=== PATIENT | female | born 1960 | race Caucasian/White ===

== ENCOUNTER 2018-07-08 04:18 | Emergency (ER) | payer OTHER ==
[2018-07-08] MEDS ORDERED: IPRATROPIUM BROM 0.5MG/2.5ML ONE (05:00)
[2018-07-08] MEDS ORDERED: ALBUTEROL 2.5 MG/3 ML NEB SOL ONE (05:00)
[2018-07-08 05:31] LABS: Absolute Lymphocytes (CBC) 2.1 K/uL (0.7-4.9); Absolute Monocytes 0.4 K/uL (0.1-1.3); Absolute Neutrophil 3.7 K/uL (1.8-8.0); Basophils % 0.9 % (0-1.3); Eosinophils % 0.8 % (0-4.4); Lymphocytes % 33.8 % (15.3-44.8); MPV 8.3 fL (7.6-11.3); Monocytes % 5.9 % (3.3-12.3); RBC Red Blood Cell Count 4.19 M/uL (3.86-4.86)
--- NOTE | 2018-07-08 07:08 | ER ---
Nurse's Notes [facility] Name: Wendi Proctor Age: 58 yrs Sex: Female : 1960 Arrival Date: 07/08/2018 Time: 04:19 Bed 6 Private MD: Diagnosis: Viral infection. COPD Exacerbation Presentation: 07/08 04:35 Presenting complaint: Patient states: Reports two days ago she started having nausea, ea headache and sore throat. Pt states grandson was diagnosed with the flu two days ago. Transition of care: patient was not received from another setting of care. Onset of symptoms was July 08, 2018. Risk Assessment: Do you want to hurt yourself or someone else? Patient reports no desire to harm self or others. Initial Sepsis Screen: Does the patient meet any 2 criteria? No. Patient's initial sepsis screen is negative. Does the patient have a suspected source of infection? No. Patient's initial sepsis screen is negative. Care prior to arrival: None. 04:35 Method Of Arrival: Ambulatory ea 04:35 Acuity: QUINCY 3 ea Triage Assessment: 04:42 Headache History: The patient has had previous headaches and this one is similar to ea previous episodes. General: Appears in no apparent distress. Behavior is calm, cooperative, appropriate for age. Pain: Complains of pain in body aches. EENT: Parent/caregiver reports the patient having sore throat. Neuro: Level of Consciousness is awake, alert, obeys commands, Oriented to person, place, time, situation. Cardiovascular: Patient's skin is warm and dry. Respiratory: Airway is patent Respiratory effort is even, labored, Respiratory pattern is regular, symmetrical, Breath sounds with wheezes bilaterally. Derm: Skin is pink, warm \T\ dry. 04:42 Pain: Pain currently is 6 out of 10 on a pain scale. Pain began 2-3 days ago. Also ea complains of nausea. Historical: - Allergies: 04:40 No Known Allergies; ea - Home Meds: 04:40 Zoloft Oral [Active]; Pro Air inhaler [Active]; lisinopril Oral [Active]; levothyroxine ea oral [Active]; - PMHx: 04:40 Pneumonia; Hypothyroidism; Hypertension; Asthma; ea - PSHx: 04:40 knee surgeries; Appendectomy; ea - Immunization history:: Adult Immunizations up to date. - Social history:: Smoking status: Patient uses tobacco products, smokes two packs cigarettes per day. - Ebola Screening: : No symptoms or risks identified at this time. Screenin:40 Abuse screen: Denies threats or abuse. Nutritional screening: No deficits noted. ea Tuberculosis screening: No symptoms or risk factors identified. Fall Risk None identified. Assessment: 04:44 Reassessment: see triage assessment. ea 06:06 Reassessment: Patient appears in no apparent distress at this time. No changes from ak1 previously documented assessment. General: Appears in no apparent distress. 07:13 Reassessment: Patient and/or family updated on plan of care and expected duration. Pain sg level reassessed. Patient is alert, oriented x 3, equal unlabored respirations, skin warm/dry/pink. pt reports having a stomach ache at this time, pt reports notifying , no new orders have been received at this time, will continue to monitor. Vital Signs: 04:40 BP 167 / 91; Pulse 86; Resp 19; Temp 97.9; Pulse Ox 95% ; Weight 54.43 kg; Height 5 ft. ea (152.40 cm) (R); Pain 0/10; 06:06 BP 123 / 77; Pulse 84; Resp 19; Pulse Ox 92% on R/A; ak1 04:40 Body Mass Index 23.44 (54.43 kg, 152.40 cm) ea ED Course: 04:19 Patient arrived in ED. ds1 04:26 Dayday Doyle MD is Attending Physician. pkl 04:35 Meghana Willis RN is Primary Nurse. ea 04:38 Triage completed. ea 04:41 Arm band placed on right wrist. Patient placed in an exam room, on a stretcher, on ea pulse oximetry. 04:42 Patient has correct armband on for positive identification. Bed in low position. Call ea light in reach. 05:17 Chest Single View XRAY In Process Unspecified. EDMS 07:29 No provider procedures requiring assistance completed. IV discontinued, intact, sg bleeding controlled, No redness/swelling at site. Pressure dressing applied. Administered Medications: 04:54 Drug: Albuterol - atroVENT (3:1) (2.5 mg - 0.5 mg) 3 ml Route: Nebulizer; ea 06:25 Follow up: Response: No adverse reaction akSara 07:13 Drug: Motrin 600 mg Route: PO; sg 07:30 Follow up: Response: No adverse reaction Outcome: 07:07 Discharge ordered by . ruby 07:28 Discharged to home ambulatory, with family. sg 07:28 Condition: good 07:28 Discharge instructions given to patient, Instructed on discharge instructions, follow up and referral plans. no drinking with medication, medication usage, safety practices, Demonstrated understanding of instructions, follow-up care, medications, Prescriptions given X 1. 07:30 Patient left the ED. sg Signatures: Dispatcher [employer] EDMS Juan Jose Gama RN RN Dayday Bass MD MD pkl Sanford, Demi ds1 Krenek, Amber, RN RN akMeghana Johnson RN RN ea
--- NOTE | 2018-07-08 07:08 | EDPHYS ---
Physician Documentation [facility] Name: Wendi Proctor Age: 58 yrs Sex: Female : 1960 Arrival Date: 07/08/2018 Time: 04:19 Bed 6 Private MD: ED Physician Dayday Doyle HPI: 07/08 04:54 This 58 yrs old Female presents to ER via Ambulatory with complaints of pkl Headache, Sore Throat, Nausea. 04:55 The patient presents with sore throat. The patient describes throat pain as raw. Onset: pkl The symptoms/episode began/occurred 2 day(s) ago. Associated signs and symptoms: Pertinent positives: cough, nausea. Historical: - Allergies: 04:40 No Known Allergies; ea - Home Meds: 04:40 Zoloft Oral [Active]; Pro Air inhaler [Active]; lisinopril Oral [Active]; levothyroxine ea oral [Active]; - PMHx: 04:40 Pneumonia; Hypothyroidism; Hypertension; Asthma; ea - PSHx: 04:40 knee surgeries; Appendectomy; ea - Immunization history:: Adult Immunizations up to date. - Social history:: Smoking status: Patient uses tobacco products, smokes two packs cigarettes per day. - Ebola Screening: : No symptoms or risks identified at this time. ROS: 04:55 Eyes: Negative for injury, pain, redness, and discharge. pkl 04:55 ENT: Positive for sore throat. 04:55 Neck: Negative for stiffness. 04:55 Cardiovascular: Negative for chest pain. 04:55 Respiratory: Positive for cough, with clear sputum, wheezing. 04:55 Abdomen/GI: Positive for nausea, Negative for abdominal pain, vomiting, diarrhea. 04:55 Back: Negative for acute changes. 04:55 : Negative for urinary symptoms. 04:55 MS/extremity: Negative for acute changes. 04:55 Skin: Negative for rash. 04:55 Neuro: Negative for altered mental status. Exam: 04:55 Head/Face: Normocephalic, atraumatic. Eyes: Pupils equal round and reactive to light, pkl extra-ocular motions intact. Lids and lashes normal. Conjunctiva and sclera are non-icteric and not injected. Cornea within normal limits. Periorbital areas with no swelling, redness, or edema. 04:55 ENT: Posterior pharynx: erythema, that is moderate. 04:55 Neck: Exam negative for nuchal rigidity. 04:55 Chest/axilla: Exam negative for acute changes. 04:55 Cardiovascular: Rate: normal, Rhythm: regular. 04:55 Respiratory: the patient does not display signs of respiratory distress, Respirations: normal, Breath sounds: bronchial sounds, that are mild, are scattered. 04:55 Abdomen/GI: Bowel sounds: normal, Palpation: abdomen is soft and non-tender, in all quadrants. 04:55 Back: Exam negative for acute changes. 04:55 : Exam negative for acute changes. 04:55 Musculoskeletal/extremity: Exam is negative for acute changes. 04:55 Skin: Exam negative for rash. 04:55 Neuro: Orientation: is normal, Mentation: is normal, Cranial nerves: grossly normal, Motor: is normal. Vital Signs: 04:40 BP 167 / 91; Pulse 86; Resp 19; Temp 97.9; Pulse Ox 95% ; Weight 54.43 kg; Height 5 ft. ea (152.40 cm) (R); Pain 0/10; 06:06 BP 123 / 77; Pulse 84; Resp 19; Pulse Ox 92% on R/A; ak1 04:40 Body Mass Index 23.44 (54.43 kg, 152.40 cm) ea MDM: 04:26 Patient medically screened. pkl 07:06 Data reviewed: vital signs, nurses notes, lab test result(s), radiologic studies, plain pkl films. 07/08 04:28 Order name: Flu; Complete Time: 07:02 07/08 04:28 Order name: Strep; Complete Time: 07:02 ea 07/08 04:39 Order name: CBC with Diff; Complete Time: 19:01 ak1 07/08 04:39 Order name: Chest Single View XRAY; Complete Time: 19:01 [facility] 07/08 05:13 Order name: Throat Culture EDMS 07/08 05:58 Order name: CBC Smear Scan; Complete Time: 19:01 EDMN Administered Medications: 04:54 Drug: Albuterol - atroVENT (3:1) (2.5 mg - 0.5 mg) 3 ml Route: Nebulizer; ea 06:25 Follow up: Response: No adverse reaction ak 07:13 Drug: Motrin 600 mg Route: PO; 07:30 Follow up: Response: No adverse reaction sg Disposition: 07/08/18 07:07 Discharged to Home. Impression: Viral infection. COPD Exacerbation. - Condition is Stable. - Prescriptions for Acyclovir 400 mg Oral Tablet - take 2 tablet by ORAL route 2 times per day; 40 tablet. - Medication Reconciliation Form, Thank You Letter, Antibiotic Education, Prescription Opioid Use form. - Follow up: Private Physician; When: 2 - 3 days; Reason: Re-evaluation by your physician. - Problem is new. - Symptoms have improved. Signatures: Dispatcher [employer] EDMS Juan Jose Gama RN RN Dayday Bass MD MD pkl Krenek, Amber RN RN ak1 Meghana Willis RN RN ea Corrections: (The following items were deleted from the chart) 07:30 07:07 07/08/2018 07:07 Discharged to Home. Impression: Viral infection. COPD sg Exacerbation. Condition is Stable. Forms are Medication Reconciliation Form, Thank You Letter, Antibiotic Education, Prescription Opioid Use. Follow up: Private Physician; When: 2 - 3 days; Reason: Re-evaluation by your physician. Problem is new. Symptoms have improved. pkl
[2018-07-08] MEDS ORDERED: IBUPROFEN 200 MG TAB PO ONE (07:21)
[2018-07-08 07:24] LABS: Blood Morphology Comment NOTED (NOT SEEN); Macrocytosis 1+; Platelet Estimate ADEQ; Stomatocytes 2+; Urine White Blood Cell Casts OK
--- NOTE | 2018-07-08 08:39 | RAD REPORT ---
EXAM DESCRIPTION: Terrie Single View07/08/2018 5:17 am CLINICAL HISTORY: Congestion COMPARISON: March 2017 FINDINGS: The lungs appear clear of acute infiltrate. The heart is normal size IMPRESSION: No acute abnormalities displayed
== END 2018-07-08 07:30 | disposition home or self-care (01) ==
LOC: ER 04:18
DX: J44.1 Chronic obstructive pulmonary disease with (acute) exacerbation (principal); B34.9 Viral infection, unspecified; I10 Essential (primary) hypertension; E03.9 Hypothyroidism, unspecified; F17.210 Nicotine dependence, cigarettes, uncomplicated
CPT/HCPCS: 36415; 71045; 85025; 87070; 87081; 87804; 94640; 99284